=== PATIENT | female | born 2000 | race Caucasian/White ===

== ENCOUNTER 2018-04-30 16:13 | Emergency (ER) | payer OTHER ==
[2018-04-30] MEDS ORDERED: NORMAL SALINE 1000 ML 1,000 ML IV ONE (16:52)
[2018-04-30 17:15] LABS: ABSOLUTE EOSINOPHILS # (AUTO) 0.1 10^3/uL (0.0-0.6); ABSOLUTE LYMPHOCYTES (AUTO) 2.1 10^3/uL (0.5-4.7); ABSOLUTE MONOCYTES (AUTO) 0.4 10^3/uL (0.1-1.4); BASOPHILS % (AUTO) 0.4 % (0-2); EOSINOPHILS % (AUTO) 0.8 % (0-6); HEMATOCRIT 37.4 % (36.0-47.0); HEMOGLOBIN 12.7 g/dL (12.0-15.5); LYMPHOCYTES % (AUTO) 19.4 % (13-45); MEAN CORPUSCULAR HGB CONC 33.9 g/dL (32.0-36.0); MEAN CORPUSCULAR VOLUME 83 fl (80-97); MONOCYTES % (AUTO) 3.9 % (3-13); PLATELET COUNT 295 10^3/uL (150-450); RED BLOOD COUNT 4.53 10^6/uL (3.72-5.28); RED CELL DISTRIBUTION WIDTH 13.2 % (11.5-14.0); SEGMENTED NEUTROPHILS % (AUTO) 75.5 % (42-78); TOTAL CELLS COUNTED % (AUTO) 100 %; WHITE BLOOD COUNT 10.6 10^3/uL (4.0-10.5)
[2018-04-30 17:27] LABS: ALANINE AMINOTRANSFERASE 21 U/L (9-52); ALBUMIN 4.4 g/dL (3.5-5.0); ALKALINE PHOSPHATASE 80 U/L (38-126); ANION GAP 10 (5-19); ASPARTATE AMINO TRANSFERASE 17 U/L (14-36); BILIRUBIN,DIRECT 0.3 mg/dL (0.0-0.4); BILIRUBIN,TOTAL 0.3 mg/dL (0.2-1.3); BLOOD UREA NITROGEN 7 mg/dL (7-20); CALCIUM 9.3 mg/dL (8.4-10.2); CARBON DIOXIDE 24 mmol/L (22-30); CHLORIDE 109 mmol/L (98-107); GLUCOSE 93 mg/dL (75-110); POTASSIUM 4.1 mmol/L (3.6-5.0); SODIUM 143.1 mmol/L (137-145); TOTAL PROTEIN 6.7 g/dL (6.3-8.2)
[2018-04-30 18:06] LABS: APPEARANCE,URINE SLIGHTLY-CLOUDY; BILIRUBIN,URINE NEGATIVE (NEGATIVE); COLOR,URINE STRAW; GLUCOSE, URINE NEGATIVE (NEGATIVE); KETONES,URINE NEGATIVE (NEGATIVE); LEUKOCYTE ESTERASE,URINE MODERATE (NEGATIVE); NITRITE,URINE NEGATIVE (NEGATIVE); PROTEIN,URINE NEGATIVE (NEGATIVE); URINE SPECIFIC GRAVITY 1.003; UROBILINOGEN,URINE NEGATIVE mg/dL (<2.0)
[2018-04-30 18:22] LABS: URINE AMPHETAMINES SCREEN UNCONFIRMED POSITIVE; URINE BARBITURATES SCREEN NEGATIVE; URINE BENZODIAZEPINES SCREEN NEGATIVE; URINE COCAINE SCREEN NEGATIVE; URINE MARIJUANA (THC) SCREEN NEGATIVE; URINE METHADONE SCREEN NEGATIVE; URINE PHENCYCLIDINE SCREEN NEGATIVE
--- NOTE | 2018-04-30 20:48 | ER Document Report ---
ED General - General Chief Complaint: Syncope Stated Complaint: POSSIBLE SYNCOPE Time Seen by Provider: 04/30/18 16:51 TRAVEL OUTSIDE OF THE [place] IN LAST 30 DAYS: No - HPI Notes: Patient presents emergency department for evaluation of a near syncopal episode. She states she was at work and felt as if she was going to pass out. She was able to slowly lower herself to the ground. She denies hitting her head. She states she believes she was out for about 2 minutes. She did increase her Adderall dose to 25 mg today, she was on 10 mg prior. She denies any other drug use. She states she has been eating and drinking normally. States she is urinating normally. - Related Data Allergies/Adverse Reactions: zolpidem [From Ambien] Allergy (Verified 04/30/18 18:17) Past Medical History - General Information source: Patient - Social History Smoking Status: Never Smoker Family History: Other - Pulmonary embolus in grandfather, possibly Patient has suicidal ideation: No Patient has homicidal ideation: No Renal/ Medical History: Denies: Hx Peritoneal Dialysis Review of Systems - Review of Systems Constitutional: Weakness EENT: No symptoms reported Cardiovascular: No symptoms reported Respiratory: No symptoms reported Gastrointestinal: No symptoms reported Female Genitourinary: No symptoms reported Musculoskeletal: No symptoms reported Skin: No symptoms reported Neurological/Psychological: See HPI Physical Exam - Vital signs Vitals: Temp 98.3 F 04/30/18 16:24 - Notes Notes: Vital signs reviewed, please refer to chart. Patient is normocephalic, a traumatic. Pupils equal round, reactive to light. Neck is supple without meningismus. Heart is regular rate and rhythm. Lungs are clear to auscultation bilaterally. Abdomen is soft, nontender, normoactive bowel sounds throughout. Extremities without cyanosis, clubbing, edema. Calves are nontender. Peripheral pulses are equal. Skin is warm and dry. Patient is awake, alert, oriented x3. Cranial nerves II through XII are grossly intact without focal neurological deficits. Strength is plus 5 out of 5 bilateral upper and lower extremities. Sensation is intact, intact lqzzep-jzaf-nsslar, rapid alternating movements, heel to steele. Course - Re-evaluation Re-evalutation: 04/30/18 20:46 Patient presented to the emergency department for evaluation. She was given IV fluids. Prior to this orthostatic vital signs were found to be positive. She had a significant drop in her systolic blood pressure from sitting to standing. She was given IV fluids. She continued to feel some dizziness. Repeat orthostatic vital signs were performed and she was found not have a significant drop. She is not vomiting. She has no other fluid losses. Her lecture lites are unremarkable. At this point we will go ahead and discharge the patient home. She is to follow-up with primary care, return to the emergency department with worsening or new concerning symptoms of any sort. - Vital Signs Vital signs: Temp Pulse Resp BP Pulse Ox 98.3 F 65 19 127/85 H 100 04/30/18 16:24 04/30/18 20:18 04/30/18 20:15 04/30/18 20:18 04/30/18 20:15 - Laboratory Result Diagrams: 04/30/18 16:54 04/30/18 16:54 Laboratory results interpreted by me: 04/30/18 04/30/18 04/30/18 16:54 16:54 16:54 WBC 10.6 H Chloride 109 H Urine Blood SMALL H Ur Leukocyte Esterase MODERATE H - EKG Interpretation by Me Additional EKG results interpreted by me: 04/30/18 20:46 Sinus mechanism with a rate of 60 bpm. Normal axis and intervals, no acute ST changes concerning for ischemia or infarction. Discharge - Discharge Clinical Impression: Orthostatic hypotension, Dizziness, Near syncope Instructions: Orthostatic Hypotension ([facility]) Additional Instructions: Stay well-hydrated. Follow-up with your doctor next week. Return to the emergency department with worsening or new concerning symptoms.
[2018-04-30 21:06] VITALS: BP 125/90
--- NOTE | 2018-04-30 22:11 | EKG REPORT ---
SEVERITY:- NORMAL ECG - SINUS RHYTHM : Confirmed by: Hallie Yeboah 30-Apr-2018 22:10:17
== END 2018-04-30 21:05 | disposition home or self-care (01) ==
LOC: ER 16:13
DX: I95.1 Orthostatic hypotension (principal); R42 Dizziness and giddiness
CPT/HCPCS: 93005; 99284; 96360; 36415; 84703; 85025; 80053; 81001; 80307; 85379; 93010; J7030

== ENCOUNTER → 2018-07-13 | Outpatient (CLI) | payer OTHER | LOC: OD 09:46 | PROVIDERS: ATTEND Obstetrics & Gynecology | DX: N91.2 Amenorrhea, unspecified (principal) | CPT/HCPCS: 36415; 84702 ==

== ENCOUNTER → 2018-07-16 | Outpatient (CLI) | payer OTHER | LOC: OD 08:50 | PROVIDERS: ATTEND Obstetrics & Gynecology | DX: N91.2 Amenorrhea, unspecified (principal) | CPT/HCPCS: 36415; 84702 ==

== ENCOUNTER → 2018-10-13 | Outpatient (CLI) | payer OTHER | LOC: OD 08:55 | PROVIDERS: ATTEND Nurse Practitioner Primary Care | DX: R10.32 Left lower quadrant pain (principal) | CPT/HCPCS: 36415; 84702 ==

== ENCOUNTER → 2018-11-09 | Outpatient (CLI) | payer OTHER | LOC: OD 08:52 | PROVIDERS: ATTEND Nurse Practitioner Primary Care | DX: Z32.01 Encounter for pregnancy test, result positive (principal) | CPT/HCPCS: 36415; 84702 ==

== ENCOUNTER 2019-03-27 17:36 | Inpatient (IN) | payer MEDICAID ==
[2019-03-27] MEDS ORDERED: PROMETHAZINE HCL INJ 25 MG/1 ML VIAL ONE (18:03)
[2019-03-27 18:25] LABS: APPEARANCE,URINE CLEAR; BILIRUBIN,URINE NEGATIVE (NEGATIVE); COLOR,URINE YELLOW; GLUCOSE, URINE NEGATIVE (NEGATIVE); KETONES,URINE TRACE mg/dL (NEGATIVE); LEUKOCYTE ESTERASE,URINE TRACE (NEGATIVE); NITRITE,URINE NEGATIVE (NEGATIVE); PROTEIN,URINE NEGATIVE (NEGATIVE); URINE SPECIFIC GRAVITY 1.012; UROBILINOGEN,URINE NEGATIVE mg/dL (<2.0)
[2019-03-27 18:33] LABS: URINE AMPHETAMINES SCREEN NEGATIVE; URINE BARBITURATES SCREEN NEGATIVE; URINE BENZODIAZEPINES SCREEN NEGATIVE; URINE COCAINE SCREEN NEGATIVE; URINE MARIJUANA (THC) SCREEN NEGATIVE; URINE METHADONE SCREEN NEGATIVE; URINE PHENCYCLIDINE SCREEN NEGATIVE
[2019-03-27] MEDS ORDERED: HYDROXYZINE PAMOATE 50 MG CAPSULE ONE (18:49)
[2019-03-27 20:32] LABS: ABSOLUTE LYMPHOCYTES (AUTO) 1.1 10^3/uL (0.5-4.7); ABSOLUTE MONOCYTES (AUTO) 0.6 10^3/uL (0.1-1.4); ABSOLUTE NEUT (AUTO) 16.1 10^3/uL (1.7-8.2); BASOPHILS % (AUTO) 0.1 % (0-2); HEMATOCRIT 30.1 % (36.0-47.0); HEMOGLOBIN 10.3 g/dL (12.0-15.5); LYMPHOCYTES % (AUTO) 6.2 % (13-45); MEAN CORPUSCULAR HEMOGLOBIN 28.6 pg (27.0-33.4); MEAN CORPUSCULAR HGB CONC 34.1 g/dL (32.0-36.0); MEAN CORPUSCULAR VOLUME 84 fl (80-97); MONOCYTES % (AUTO) 3.5 % (3-13); PLATELET COUNT 282 10^3/uL (150-450); RED BLOOD COUNT 3.59 10^6/uL (3.72-5.28); RED CELL DISTRIBUTION WIDTH 13.4 % (11.5-14.0); SEGMENTED NEUTROPHILS % (AUTO) 90.2 % (42-78); TOTAL CELLS COUNTED % (AUTO) 100 %; WHITE BLOOD COUNT 17.8 10^3/uL (4.0-10.5)
[2019-03-27] MEDS ORDERED: MORPHINE SULFATE 10 MG/ML INJ ONE (20:32)
[2019-03-27] MEDS ORDERED: MORPHINE SULFATE 10 MG/ML INJ IV PRN (20:38)
[2019-03-27 20:48] LABS: ALBUMIN 3.1 g/dL (3.5-5.0); ALKALINE PHOSPHATASE 102 U/L (38-126); ANION GAP 7 (5-19); ASPARTATE AMINO TRANSFERASE 46 U/L (14-36); BILIRUBIN,DIRECT 0.1 mg/dL (0.0-0.4); BILIRUBIN,TOTAL 0.5 mg/dL (0.2-1.3); BLOOD UREA NITROGEN 4 mg/dL (7-20); CALCIUM 8.8 mg/dL (8.4-10.2); CARBON DIOXIDE 24 mmol/L (22-30); CHLORIDE 105 mmol/L (98-107); GLUCOSE 94 mg/dL (75-110); POTASSIUM 3.4 mmol/L (3.6-5.0); TOTAL PROTEIN 5.6 g/dL (6.3-8.2)
[2019-03-27 20:51] LABS: AMYLASE < 30 U/L (30-110)
[2019-03-27] MEDS ORDERED: AMPICILLIN SOD INJ 1 GM VIAL ONE (21:01)
[2019-03-27] MEDS: RINGERS SOLUTION,LACTATED 1,000 ML IV PRN (21:08)
--- NOTE | 2019-03-27 21:09 | RADIOLOGY REPORT (SQ) ---
EXAM DESCRIPTION: US LIMITED CLINICAL HISTORY: 19 years Female , abdominal pain, LMP 10/16/2018 COMPARISON: None TECHNIQUE: Transabdominal limited OB ultrasound was performed for a total of 26 images. FINDINGS: There is an intrauterine in a vertex presentation. The cervix is closed and measures 3.2 cm in length. A heart rate is measured at 155 bpm. The amniotic fluid index measures 11.7 cm. The placenta is anterior, no previa or abruption. The clinical age is 23 weeks 1 day. IMPRESSION: Single viable intrauterine in a vertex presentation with an anterior placenta, adequate amniotic fluid volume, and clinical age of 23 weeks 1 day giving an EDC on 07/23/2019.
--- NOTE | 2019-03-27 21:17 | RADIOLOGY REPORT (SQ) ---
US ABDOMEN LIMITED HISTORY: RUQ abdominal pain, 23 week COMPARISON: none TECHNIQUE: Real-time sonographic images of the right upper quadrant of the abdomen were obtained including color flow analysis. FINDINGS: Transabdominal sonographic images through the right upper quadrant were performed with grayscale, color and Doppler evaluation. The liver is normal in appearance and measures 17.1 cm in length. Imaged hepatic and portal veins are patent with normal directional flow. No intrahepatic or extrahepatic biliary ductal dilatation. 3.1-mm common hepatic duct. The gallbladder is adequately distended. No gallstone, gallbladder wall thickening or pericholecystic fluid. Negative sonographic Sofia's sign. Unremarkable pancreas. The pancreatic tail is obscured by overlying bowel gas. The right kidney measures 12.0 cm in length with dilatation of the renal pelvis up to 3.0 cm and moderate caliectasis and moderate dilatation of the visualized proximal portion of the right ureter. No shadowing renal calculi are noted. No free fluid in Morison's pouch. IMPRESSION: No cholelithiasis, evidence of acute cholecystitis, or evidence of biliary obstruction. Moderate right hydronephrosis may be due to extrinsic compression of the distal right ureter or a right ureteral calculus.
--- NOTE | 2019-03-27 21:22 | Admission Physical ---
Datetime Report Generated by CPN: 03/27/2019 21:22 CURRENT ADMISSION Chief Complaint: Other Chief Complaint Other: midepigastric pain causing nausea. Onset around 1400. Pain is stabbing in nature Indication for Induction: Not Applicable Admit Impression : , Intrauterine ; Observation/Evaluation Admit Plan: Admit to Unit; Observation/Evaluation ALLERGIES Medication Allergies: Yes Medication Allergies: zolpidem (04/30/2018) Latex: No Latex Allergies OBSTETRICAL HISTORY EDC: 07/23/2019 00:00 : 3 Para: 1 Term: 1 : 0 SAB: 1 IAB: 0 Gestational Diabetes: No Rh Sensitization: No Incompetent Cervix: No ADILENE: No Infertility: No ART Treatment: No Uterine Anomaly: No IUGR: No Hx Previous C/S: No Macrosomia: No Hx Loss/Stillborn: No PIH: No Hx : No Placenta Previa/Abruption: No Depression/PP Depression: No PTL/PROM: No Post Hemorrhage: No Current Procedures: Ultrasound Obstetrical History Comments: G1: 2014, , 37 weeks G2: current SEE RECORDS Alcohol: No Marijuana : No Cocaine: No Other Illicit Drugs: No Cigarettes: Never Smoker. [id number] MEDICAL HISTORY Diabetes: No Blood Transfusion: No Pulmonary Disease (Asthma, TB): No Breast Disease: No Hypertension: No Trommel Tender Surgery: No Heart Disease: No Hosp/Surgery: No Autoimmune Disorder: No Anesthetic Complications: No Kidney Disease: Yes Abnormal Pap Smear: No Neuro/Epilepsy: No Psychiatric Disorders: No Other Medical Diseases: No Hepatitis/Liver Disease: No Significant Family History: No Varicosities/Phlebitis: No Trauma/Violence : No Thyroid Dysfunction: No Medical History Comments: frequent UTIs INFECTIOUS HISTORY Gonorrhea: No Genital Herpes: No Chlamydia: No Tuberculosis: No Syphilis: No Hepatitis: No HIV/AIDS Exposure: No Rash or Viral Illness: No HPV: No PHYSICAL EXAM General: Abnormal HEENT: Normal Neurologic: Normal Thyroid: Normal Heart: Normal Lungs: Normal Breast: Normal Back: Normal Abdomen: Normal Genitourinary Exam: Normal Extremities: Normal DTRs: Normal Pelvic Type: Adequate Physical Exam Comments: appears very uncomfortable. c/o chills and shaking. Vital Signs: Reviewed FETUS A EGA: 23.1 Admit Comment: WBC 17.8. In light of patient discomfort and evidence of possible infection, will admit for IV fluids and pain control. Ampicillin initiated until able to determine possible alternative etiology. CMP, ZULEIKA and Lipase pending. sono of gallbladder and cervical length done. reports pending. PLANS FOR LABOR AND DELIVERY Feeding Preference: Breast Circumcision: N/A INFORMED CONSENT Signature: Electronically signed by Rosy De La Cruz MD ([facility]) on 03/27/2019 at 21:21 with User ID: [email or web address]
[2019-03-28] MEDS ORDERED: AMPICILLIN SOD INJ 1 GM VIAL IV SCH
[2019-03-28] MEDS: ACETAMINOPHEN 325 MG TABLET PO PRN ×4 (00:49→20:41)
[2019-03-28] MEDS: AMPICILLIN SOD INJ 1 GM VIAL IV SCH ×2 (04:04→09:18)
[2019-03-28] MEDS ORDERED: PROMETHAZINE HCL INJ 25 MG/1 ML VIAL IV ONE ×2 (07:00→23:59)
[2019-03-28 07:16] LABS: ABSOLUTE EOSINOPHILS # (AUTO) 0.1 10^3/uL (0.0-0.6); ABSOLUTE LYMPHOCYTES (AUTO) 1.6 10^3/uL (0.5-4.7); ABSOLUTE MONOCYTES (AUTO) 0.4 10^3/uL (0.1-1.4); ABSOLUTE NEUT (AUTO) 8.6 10^3/uL (1.7-8.2); BASOPHILS % (AUTO) 0.2 % (0-2); EOSINOPHILS % (AUTO) 0.5 % (0-6); HEMATOCRIT 29.8 % (36.0-47.0); HEMOGLOBIN 10.4 g/dL (12.0-15.5); LYMPHOCYTES % (AUTO) 14.8 % (13-45); MEAN CORPUSCULAR HEMOGLOBIN 29.2 pg (27.0-33.4); MEAN CORPUSCULAR HGB CONC 34.9 g/dL (32.0-36.0); MEAN CORPUSCULAR VOLUME 84 fl (80-97); PLATELET COUNT 276 10^3/uL (150-450); RED BLOOD COUNT 3.56 10^6/uL (3.72-5.28); RED CELL DISTRIBUTION WIDTH 13.2 % (11.5-14.0); SEGMENTED NEUTROPHILS % (AUTO) 80.5 % (42-78); TOTAL CELLS COUNTED % (AUTO) 100 %; WHITE BLOOD COUNT 10.7 10^3/uL (4.0-10.5)
[2019-03-28] MEDS: RINGERS SOLUTION,LACTATED 1,000 ML IV PRN ×2 (07:40→16:27)
[2019-03-28 14:44] LABS: ALBUMIN 2.8 g/dL (3.5-5.0); ALKALINE PHOSPHATASE 114 U/L (38-126); AMYLASE 34 U/L (30-110); ANION GAP 8 (5-19); ASPARTATE AMINO TRANSFERASE 61 U/L (14-36); BILIRUBIN,DIRECT 0.9 mg/dL (0.0-0.4); BILIRUBIN,TOTAL 1.3 mg/dL (0.2-1.3); BLOOD UREA NITROGEN 3 mg/dL (7-20); CARBON DIOXIDE 22 mmol/L (22-30); CHLORIDE 108 mmol/L (98-107); GLUCOSE 74 mg/dL (75-110); POTASSIUM 3.7 mmol/L (3.6-5.0); TOTAL PROTEIN 5.7 g/dL (6.3-8.2)
[2019-03-28] MEDS: ONDANSETRON HCL INJ/PF 4 MG/2 ML SDV IV PRN ×2 (15:25→22:22)
[2019-03-28] MEDS: AMPICILLIN SODIUM 1 GM in NORMAL SALINE 50 ML IV SCH ×2 (15:26→21:34)
--- NOTE | 2019-03-28 16:00 | PDOC PROGRESS REPORT ---
Subjective Progress Note for:: 03/28/19 Subjective:: pt reports that she was feeling better this am and would like to eat. She ate now reports pain same as last night. epigastric in origin but changed from sharp to achy, now her nausea is worse too. Reason For Visit: , epigastric pain Physical Exam - Physical Exam Vital Signs: Temp Pulse Resp BP Pulse Ox 98.3 F 66 18 96/49 L 99 03/28/19 15:19 03/28/19 15:19 03/28/19 15:19 03/28/19 15:19 03/28/19 15:19 Intake & Output 03/27/19 03/28/19 03/29/19 06:59 06:59 06:59 Intake Total 1000 Balance 1000 Weight 77.7 kg General appearance: PRESENT: no acute distress, well-developed, well-nourished Head exam: PRESENT: atraumatic, normocephalic Neck exam: PRESENT: full ROM. ABSENT: carotid bruit, JVD, lymphadenopathy, thyromegaly Respiratory exam: PRESENT: clear to auscultation jose eduardo, symmetrical, unlabored Cardiovascular exam: PRESENT: RRR. ABSENT: diastolic murmur, rubs, systolic murmur Vascular exam: PRESENT: normal capillary refill GI/Abdominal exam: PRESENT: soft, tenderness. ABSENT: distended, guarding, mass, Sofia's sign, rebound Rectal exam: PRESENT: deferred Extremities exam: PRESENT: full ROM. ABSENT: calf tenderness, clubbing, pedal edema Neurological exam: PRESENT: alert, awake, oriented to person, oriented to place, oriented to time, oriented to situation, CN II-XII grossly intact. ABSENT: motor sensory deficit Psychiatric exam: PRESENT: appropriate affect, normal mood. ABSENT: homicidal ideation, suicidal ideation Result Laboratory Results: 03/28/19 07:09 03/28/19 07:09 03/27/19 03/27/19 03/27/19 18:00 20:15 20:15 WBC 17.8 H RBC 3.59 L Hgb 10.3 L Hct 30.1 L MCV 84 MCH 28.6 MCHC 34.1 RDW 13.4 Plt Count 282 Seg Neutrophils % 90.2 H Sodium 135.9 L Potassium 3.4 L Chloride 105 Carbon Dioxide 24 Anion Gap 7 BUN 4 L Creatinine 0.51 L Est GFR ( Amer) > 60 Glucose 94 Calcium 8.8 Total Bilirubin 0.5 AST 46 H Alkaline Phosphatase 102 Total Protein 5.6 L Albumin 3.1 L Amylase < 30 L Lipase 35.9 Urine Color YELLOW Urine Appearance CLEAR Urine pH 6.0 Ur Specific [place] 1.012 Urine Protein NEGATIVE Urine Glucose (UA) NEGATIVE Urine Ketones TRACE H Urine Blood SMALL H Urine Nitrite NEGATIVE Ur Leukocyte Esterase TRACE H Urine WBC (Auto) 9 Urine RBC (Auto) 1 03/28/19 03/28/19 07:09 07:09 WBC 10.7 H RBC 3.56 L Hgb 10.4 L Hct 29.8 L MCV 84 MCH 29.2 MCHC 34.9 RDW 13.2 Plt Count 276 Seg Neutrophils % 80.5 H Sodium 137.7 Potassium 3.7 Chloride 108 H Carbon Dioxide 22 Anion Gap 8 BUN 3 L Creatinine 0.52 Est GFR ( Amer) > 60 Glucose 74 L Calcium 9.0 Total Bilirubin 1.3 AST 61 H Alkaline Phosphatase 114 Total Protein 5.7 L Albumin 2.8 L Amylase 34 Lipase 24.4 Urine Color Urine Appearance Urine pH Ur Specific Post Urine Protein Urine Glucose (UA) Urine Ketones Urine Blood Urine Nitrite Ur Leukocyte Esterase Urine WBC (Auto) Urine RBC (Auto) Impressions: Abdomen Ultrasound 03/27/19 00:00 IMPRESSION: No cholelithiasis, evidence of acute cholecystitis, or evidence of biliary obstruction. Moderate right hydronephrosis may be due to extrinsic compression of the distal right ureter or a right ureteral calculus. Obstetrics Ultrasound 03/27/19 00:00 IMPRESSION: Single viable intrauterine in a vertex presentation with an anterior placenta, adequate amniotic fluid volume, and clinical age of 23 weeks 1 day giving an EDC on 07/23/2019. Status: Imported from PACS Assessment & Plan - Diagnosis (1) Epigastric abdominal pain affecting Is this a current diagnosis for this admission?: Yes Plan: WBC has come down. Still no fevers. Still significant epigastric pain. WIll repeat labs today and repeat labs in am. concern for subclinical cholecystitis. Since patient feeling more nauseated - will stop po food at this time. Reviewed with patient normal US. Continue antibiotics for now (2) Second trimester Is this a current diagnosis for this admission?: Yes Plan: doptones q shift. No ctx, no vb, no lof - Time Time Spent with patient: 15-24 minutes Medications reviewed and adjusted accordingly: Yes Anticipated discharge: Home Within: within 24 hours - Inpatient Certification Based on my medical assessment, after consideration of the patient's comorbidities, presenting symptoms, or acuity I expect that the services needed warrant INPATIENT care.: Yes I certify that my determination is in accordance with my understanding of Medicare's requirements for reasonable and necessary INPATIENT services [42 CFR 412.3e].: Yes Medical Necessity: Need For IV Fluids, Need for Pain Control, Need for IV Antibiotics
[2019-03-28] MEDS ORDERED: GLUCAGON,HUMAN RECOMB 1 MG INJ SUBCUT PRN (16:01)
[2019-03-28] MEDS ORDERED: DEXTROSE 50%-WATER 25 GM/50 ML DISP.SYRIN IV PRN ×2 (16:01)
[2019-03-28] MEDS ORDERED: DEXTROSE 40% GEL 15 GM TUBE PO PRN ×2 (16:01)
[2019-03-29] MEDS: RINGERS SOLUTION,LACTATED 1,000 ML IV PRN (00:32)
[2019-03-29] MEDS: AMPICILLIN SODIUM 1 GM in NORMAL SALINE 50 ML IV SCH ×2 (03:41→08:46)
[2019-03-29 07:25] LABS: HEMATOCRIT 28.7 % (36.0-47.0); HEMOGLOBIN 9.9 g/dL (12.0-15.5); MEAN CORPUSCULAR HEMOGLOBIN 29.2 pg (27.0-33.4); MEAN CORPUSCULAR HGB CONC 34.6 g/dL (32.0-36.0); MEAN CORPUSCULAR VOLUME 84 fl (80-97); PLATELET COUNT 231 10^3/uL (150-450); RED CELL DISTRIBUTION WIDTH 13.5 % (11.5-14.0); WHITE BLOOD COUNT 8.3 10^3/uL (4.0-10.5)
[2019-03-29 07:39] LABS: ALBUMIN 2.6 g/dL (3.5-5.0); ALKALINE PHOSPHATASE 105 U/L (38-126); ANION GAP 7 (5-19); ASPARTATE AMINO TRANSFERASE 33 U/L (14-36); BILIRUBIN,TOTAL 0.3 mg/dL (0.2-1.3); BLOOD UREA NITROGEN 5 mg/dL (7-20); CALCIUM 8.5 mg/dL (8.4-10.2); CARBON DIOXIDE 23 mmol/L (22-30); CHLORIDE 107 mmol/L (98-107); GLUCOSE 74 mg/dL (75-110); POTASSIUM 3.5 mmol/L (3.6-5.0)
[2019-03-29] MEDS ORDERED: FAMOTIDINE INJ/PF 20 MG/2 ML SDV IV ONE (08:20)
[2019-03-29] MEDS ORDERED: NORMAL SALINE 1000 ML 1,000 ML with THIAMINE HCL 100 MG, MVI, ADULT NO.1 WITH VIT K 10 ... IV ONE ×8 (09:00→10:00)
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
--- NOTE | 2019-03-29 13:07 | PDOC DISCHARGE SUMMARY ---
Impression - Admit/DC Date/PCP Admission Date/Primary Care Provider: 03/27/19 20:40 TEQUILA XIE NP Discharge Date: 03/29/19 - Assessment Summary: The patient was admitted overnight and was made NPO. General surgery saw her today as well. She is now eating and her epigastric pain has resolved and she is ready to go home. - Additional Information Resuscitation Status: Full Code Discharge Diet: As Tolerated Discharge Activity: Activity As Tolerated Referrals: TEQUILA XIE NP [Primary Care Provider] - Home Medications: No Home Medications 03/27/19 History of Present Illiness History of Present Illness: MAYRA BURNS is a 19 year old female Physical Exam - Physical Exam Vital Signs: Temp Pulse Resp BP Pulse Ox 97.7 F 65 16 92/40 L 99 03/29/19 11:25 03/29/19 11:25 03/29/19 11:25 03/29/19 11:25 03/29/19 11:25 Intake & Output 03/28/19 03/29/19 03/30/19 06:59 06:59 06:59 Intake Total 1000 2150 Balance 1000 2150 Weight 77.7 kg 78.3 kg Results Laboratory Results: WBC 8.3 10^3/uL (4.0-10.5) 03/29/19 06:35 RBC 3.40 10^6/uL (3.72-5.28) L 03/29/19 06:35 Hgb 9.9 g/dL (12.0-15.5) L 03/29/19 06:35 Hct 28.7 % (36.0-47.0) L 03/29/19 06:35 MCV 84 fl (80-97) 03/29/19 06:35 MCH 29.2 pg (27.0-33.4) 03/29/19 06:35 MCHC 34.6 g/dL (32.0-36.0) 03/29/19 06:35 RDW 13.5 % (11.5-14.0) 03/29/19 06:35 Plt Count 231 10^3/uL (150-450) 03/29/19 06:35 Lymph % (Auto) 14.8 % (13-45) 03/28/19 07:09 [place] % (Auto) 4.0 % (3-13) 03/28/19 07:09 Eos % (Auto) 0.5 % (0-6) 03/28/19 07:09 Baso % (Auto) 0.2 % (0-2) 03/28/19 07:09 Absolute Neuts (auto) 8.6 10^3/uL (1.7-8.2) H 03/28/19 07:09 Absolute Lymphs (auto) 1.6 10^3/uL (0.5-4.7) 03/28/19 07:09 Absolute Monos (auto) 0.4 10^3/uL (0.1-1.4) 03/28/19 07:09 Absolute Eos (auto) 0.1 10^3/uL (0.0-0.6) 03/28/19 07:09 Absolute Basos (auto) 0.0 10^3/uL (0.0-0.2) 03/28/19 07:09 Seg Neutrophils % 80.5 % (42-78) H 03/28/19 07:09 Sodium 137.2 mmol/L (137-145) 03/29/19 06:35 Potassium 3.5 mmol/L (3.6-5.0) L 03/29/19 06:35 Chloride 107 mmol/L (98-107) 03/29/19 06:35 Carbon Dioxide 23 mmol/L (22-30) 03/29/19 06:35 Anion Gap 7 (5-19) 03/29/19 06:35 BUN 5 mg/dL (7-20) L 03/29/19 06:35 Creatinine 0.56 mg/dL (0.52-1.25) 03/29/19 06:35 Est GFR ( Amer) > 60 (>60) 03/29/19 06:35 Est GFR (MDRD) Non-Af > 60 (>60) 03/29/19 06:35 Glucose 74 mg/dL (75-110) L 03/29/19 06:35 Calcium 8.5 mg/dL (8.4-10.2) 03/29/19 06:35 Total Bilirubin 0.3 mg/dL (0.2-1.3) 03/29/19 06:35 Direct Bilirubin 0.0 mg/dL (0.0-0.4) 03/29/19 06:35 Neonat Total Bilirubin Not Reportable 03/29/19 06:35 Neonat Direct Bilirubin Not Reportable 03/29/19 06:35 Neonat Indirect Bili Not Reportable 03/29/19 06:35 AST 33 U/L (14-36) 03/29/19 06:35 ALT 23 U/L (<35) 03/29/19 06:35 Alkaline Phosphatase 105 U/L (38-126) 03/29/19 06:35 Total Protein 5.0 g/dL (6.3-8.2) L 03/29/19 06:35 Albumin 2.6 g/dL (3.5-5.0) L 03/29/19 06:35 Amylase 34 U/L (30-110) 03/28/19 07:09 Lipase 24.4 U/L (23-300) 03/28/19 07:09 Urine Color YELLOW 03/27/19 18:00 Urine Appearance CLEAR 03/27/19 18:00 Urine pH 6.0 (5.0-9.0) 03/27/19 18:00 Ur Specific [place] 1.012 03/27/19 18:00 Urine Protein NEGATIVE mg/dL (NEGATIVE) 03/27/19 18:00 Urine Glucose (UA) NEGATIVE mg/dL (NEGATIVE) 03/27/19 18:00 Urine Ketones TRACE mg/dL (NEGATIVE) H 03/27/19 18:00 Urine Blood SMALL (NEGATIVE) H 03/27/19 18:00 Urine Nitrite NEGATIVE (NEGATIVE) 03/27/19 18:00 Urine Bilirubin NEGATIVE (NEGATIVE) 03/27/19 18:00 Urine Urobilinogen NEGATIVE mg/dL (<2.0) 03/27/19 18:00 Ur Leukocyte Esterase TRACE (NEGATIVE) H 03/27/19 18:00 Urine WBC (Auto) 9 /HPF 03/27/19 18:00 Urine RBC (Auto) 1 /HPF 03/27/19 18:00 Squamous Epi Cells Auto 2 /HPF 03/27/19 18:00 Urine Mucus (Auto) RARE /LPF 03/27/19 18:00 Urine Ascorbic Acid NEGATIVE (NEGATIVE) 03/27/19 18:00 Urine Opiates Screen NEGATIVE 03/27/19 18:00 Urine Methadone Screen NEGATIVE 03/27/19 18:00 Ur Barbiturates Screen NEGATIVE 03/27/19 18:00 Ur Phencyclidine Scrn NEGATIVE 03/27/19 18:00 Ur Amphetamines Screen NEGATIVE 03/27/19 18:00 U Benzodiazepines Scrn NEGATIVE 03/27/19 18:00 Urine Cocaine Screen NEGATIVE 03/27/19 18:00 U Marijuana (THC) Screen NEGATIVE 03/27/19 18:00 Impressions: Abdomen Ultrasound 03/27/19 00:00 IMPRESSION: No cholelithiasis, evidence of acute cholecystitis, or evidence of biliary obstruction. Moderate right hydronephrosis may be due to extrinsic compression of the distal right ureter or a right ureteral calculus. Obstetrics Ultrasound 03/27/19 00:00 IMPRESSION: Single viable intrauterine in a vertex presentation with an anterior placenta, adequate amniotic fluid volume, and clinical age of 23 weeks 1 day giving an EDC on 07/23/2019. Stroke Is this a Stroke Patient?: No Acute Heart Failure - Is this a Heart Failure Patient?: No
[2019-03-29 14:26] VITALS: BP 90/44
== END 2019-03-29 15:05 | disposition home or self-care (01) | DRG 833 ==
LOC: LC 17:36 → OBSVTOIN 20:40 → LR 20:40 → 2S 21:55
PROVIDERS: ADMIT Obstetrics & Gynecology; ATTEND Obstetrics & Gynecology
DX: O26.893 Other specified pregnancy related conditions, third trimester (principal); R10.13 Epigastric pain; K59.09 Other constipation; Z3A.37 37 weeks gestation of pregnancy
CPT/HCPCS: 36415; 76705; 76815; 80053; 80307; 81001; 82150; 83690; 85025; 85027; 94760; J0290; J2270; J2405; J2550; J3411; J3490; J7030; J7120; S0028

== ENCOUNTER 2019-04-29 08:31 | Emergency (ER) | payer MEDICAID ==
[2019-04-29 08:38] VITALS: BP 111/57
[2019-04-29 09:18] LABS: APPEARANCE,URINE CLOUDY; BILIRUBIN,URINE NEGATIVE (NEGATIVE); COLOR,URINE YELLOW; GLUCOSE, URINE NEGATIVE (NEGATIVE); KETONES,URINE NEGATIVE (NEGATIVE); LEUKOCYTE ESTERASE,URINE NEGATIVE (NEGATIVE); NITRITE,URINE NEGATIVE (NEGATIVE); PROTEIN,URINE NEGATIVE (NEGATIVE)
[2019-04-29] MEDS ORDERED: NORMAL SALINE 1000 ML 1,000 ML IV ONE (11:27)
[2019-04-29] MEDS ORDERED: ACETAMINOPHEN 325 MG TABLET PO ONE (11:28)
[2019-04-29 12:23] LABS: ABSOLUTE LYMPHOCYTES (AUTO) 1.2 10^3/uL (0.5-4.7); ABSOLUTE MONOCYTES (AUTO) 0.3 10^3/uL (0.1-1.4); ABSOLUTE NEUT (AUTO) 13.3 10^3/uL (1.7-8.2); BASOPHILS % (AUTO) 0.1 % (0-2); HEMATOCRIT 34.3 % (36.0-47.0); HEMOGLOBIN 11.6 g/dL (12.0-15.5); LYMPHOCYTES % (AUTO) 8.1 % (13-45); MEAN CORPUSCULAR HEMOGLOBIN 28.4 pg (27.0-33.4); MEAN CORPUSCULAR HGB CONC 33.7 g/dL (32.0-36.0); MEAN CORPUSCULAR VOLUME 84 fl (80-97); MONOCYTES % (AUTO) 2.2 % (3-13); PLATELET COUNT 404 10^3/uL (150-450); RED BLOOD COUNT 4.07 10^6/uL (3.72-5.28); RED CELL DISTRIBUTION WIDTH 13.3 % (11.5-14.0); SEGMENTED NEUTROPHILS % (AUTO) 89.6 % (42-78); TOTAL CELLS COUNTED % (AUTO) 100 %; WHITE BLOOD COUNT 14.9 10^3/uL (4.0-10.5)
[2019-04-29 12:46] LABS: ALBUMIN 3.5 g/dL (3.5-5.0); ALKALINE PHOSPHATASE 191 U/L (38-126); ANION GAP 9 (5-19); ASPARTATE AMINO TRANSFERASE 96 U/L (14-36); BILIRUBIN,DIRECT 0.8 mg/dL (0.0-0.4); BLOOD UREA NITROGEN 3 mg/dL (7-20); CALCIUM 9.8 mg/dL (8.4-10.2); CARBON DIOXIDE 25 mmol/L (22-30); CHLORIDE 107 mmol/L (98-107); GLUCOSE 80 mg/dL (75-110); POTASSIUM 4.2 mmol/L (3.6-5.0); TOTAL PROTEIN 6.8 g/dL (6.3-8.2)
--- NOTE | 2019-04-29 13:03 | RADIOLOGY REPORT (SQ) ---
EXAM DESCRIPTION: U/S RETROPERITON (RENAL/AORTA) COMPLETED DATE/TIME: 04/29/2019 12:35 pm REASON FOR STUDY: right flank pain ? hydro/ stone COMPARISON: None. TECHNIQUE: Dynamic and static grayscale images acquired of the kidneys and bladder and recorded on P ACS. Additional selected color Doppler and spectral images recorded. LIMITATIONS: None. FINDINGS: RIGHT KIDNEY: The right kidney measures 11 cm in length. The corticomedullary differentia tion is preserved. There is scju-es-ziypgytn hydronephrosis. There is no calcification or mass. LEFT KIDNEY: The left kidney measures 10.4 cm in length. The corticomedullary differentiation is pr eserved. There is no hydronephrosis, calcification or mass. BLADDER: No masses. OTHER FINDINGS: Gravid uterus. The heart rate measures 140 beats per minute. IMPRESSION: 1. [id number] right-sided hydronephrosis. 2. Gravid uterus. TECHNICAL DOCUMENTATION: JOB ID: [id number] 2011 [employer]- All Rights Reserved Reading location - IP/workstation name: [email or web address]
--- NOTE | 2019-04-29 15:05 | ER Document Report ---
Entered by BEBO THOMPSON SCRIBE 04/29/19 1124 Acting as scribe for:EDNA WALDROP DO ED GI/ - General Chief Complaint: Back Pain Stated Complaint: BACK/ RIB PAIN/ Time Seen by Provider: 04/29/19 10:36 Primary Care Provider: TEQUILA XIE NP [Primary Care Provider] - Follow up as needed Mode of Arrival: Ambulatory Information source: Patient Notes: This 19 year old female patient presents to the emergency department today with complaints of nausea, vomiting, and diarrhea as well as associated right flank pain. Patient is 28 weeks , . Patient denies any vaginal bleeding. TRAVEL OUTSIDE OF THE [place] IN LAST 30 DAYS: No - Related Data Allergies/Adverse Reactions: zolpidem [From Ambien] Allergy (Verified 04/29/19 08:53) Past Medical History - General Information source: Patient - Social History Smoking Status: Never Smoker Cigarette use (# per day): No Chew tobacco use (# tins/day): No Frequency of alcohol use: None Drug Abuse: None Lives with: Family Family History: None, Other - Pulmonary embolus in grandfather, possibly Patient has suicidal ideation: No Patient has homicidal ideation: No - Medical History Medical History: Negative Surgical Hx: Negative Review of Systems - Review of Systems Constitutional: No symptoms reported EENT: No symptoms reported Cardiovascular: No symptoms reported Respiratory: No symptoms reported Gastrointestinal: See HPI, Diarrhea, Nausea, Vomiting Genitourinary: No symptoms reported Female Genitourinary: See HPI, . denies: Vaginal bleeding Musculoskeletal: No symptoms reported Skin: No symptoms reported Hematologic/Lymphatic: No symptoms reported Neurological/Psychological: No symptoms reported -: Yes All other systems reviewed and negative Physical Exam - Vital signs Vitals: Temp Pulse Resp BP Pulse Ox 98.4 F 71 20 111/57 L 99 04/29/19 08:36 04/29/19 08:36 04/29/19 08:36 04/29/19 08:36 04/29/19 08:36 - Notes Notes: Physical Exam: General: Alert, appears well. HEENT: Normocephalic. Atraumatic. PERRL. Extraocular movements intact. Oropharynx clear. Neck: Supple. Non-tender. Respiratory: No respiratory distress. Clear and equal breath sounds bilaterally. Cardiovascular: Regular rate and rhythm. Abdominal: Gravid uterus. No distension. Normal Bowel Sounds. Back: No gross abnormalities. Extremities: Moves all four extremities. Upper extremities: Normal inspection. Normal ROM. Lower extremities: Normal inspection. No edema. Normal ROM. Neurological: Normal cognition. AAOx4. Normal speech. Psychological: Normal affect. Normal Mood. Skin: Warm. Dry. Normal color. Course - Re-evaluation Re-evalutation: 04/29/19 13:38 MDM 19 year old female in third trimester of is here with right flank pain earlier with nausea and vomiting. UTI last week. Feels better now. No further nausea. Sono wiht hydro ? passed stone or small stone. No fever and nontoxic and improved here. Discussed follow up with Ob - she has appointment tomorrow - and she expressed understanding. - Vital Signs Vital signs: Temp Pulse Resp BP Pulse Ox 98.4 F 71 20 111/57 L 99 04/29/19 08:36 04/29/19 08:36 04/29/19 08:36 04/29/19 08:36 04/29/19 08:36 - Laboratory Result Diagrams: 04/29/19 12:10 04/29/19 12:10 Laboratory results interpreted by me: 04/29/19 04/29/19 04/29/19 09:00 12:10 12:10 WBC 14.9 H Hgb 11.6 L Hct 34.3 L Lymph % (Auto) 8.1 L [place] % (Auto) 2.2 L Absolute Neuts (auto) 13.3 H Seg Neutrophils % 89.6 H BUN 3 L Creatinine 0.43 L Direct Bilirubin 0.8 H AST 96 H ALT 43 H Alkaline Phosphatase 191 H Urine Urobilinogen 2.0 H Discharge - Discharge Clinical Impression: Right flank pain Hydronephrosis Qualifiers: Hydronephrosis type: unspecified Qualified Code(s): N13.30 - Unspecified hydronephrosis Condition: Good Disposition: HOME, SELF-CARE Instructions: Antinausea Medication ([facility]), Kidney Stone ([facility]), ([facility]) Additional Instructions: See your Ob doctor in follow up. Take your medicine as directed. Please return here for any problems or any concerns. Prescriptions: Promethazine HCl [Phenergan 25 mg Tablet] 12.5 mg PO TID #12 tablet Referrals: ROJAS,TEQUILA, [employer] [Primary Care Provider] - Follow up as needed I personally performed the services described in the documentation, reviewed and edited the documentation which was dictated to the scribe in my presence, and it accurately records my words and actions.
== END 2019-04-29 14:11 | disposition home or self-care (01) ==
LOC: ER 08:31
DX: O26.893 Other specified pregnancy related conditions, third trimester (principal); N13.30 Unspecified hydronephrosis; R10.9 Unspecified abdominal pain; R19.7 Diarrhea, unspecified; O21.2 Late vomiting of pregnancy; Z3A.28 28 weeks gestation of pregnancy; Z87.440 Personal history of urinary (tract) infections; Z88.8 Allergy status to other drugs, medicaments and biological substances
CPT/HCPCS: 99284; 96360; 36415; 85025; 80053; 81001; 76770; J3490; J7030

== ENCOUNTER 2019-05-09 05:25 | Outpatient (CLI) | payer MEDICAID ==
[2019-05-09] MEDS ORDERED: RINGERS SOLUTION,LACTATED 1,000 ML IV PRN (05:52)
[2019-05-09] MEDS ORDERED: PROMETHAZINE HCL INJ 25 MG/1 ML VIAL IV ONE (05:53)
[2019-05-09] MEDS ORDERED: PROMETHAZINE HCL INJ 25 MG/1 ML VIAL ONE (05:56)
[2019-05-09 06:02] LABS: APPEARANCE,URINE CLEAR; BILIRUBIN,URINE NEGATIVE (NEGATIVE); COLOR,URINE STRAW; GLUCOSE, URINE NEGATIVE (NEGATIVE); KETONES,URINE NEGATIVE (NEGATIVE); LEUKOCYTE ESTERASE,URINE TRACE (NEGATIVE); NITRITE,URINE NEGATIVE (NEGATIVE); PROTEIN,URINE NEGATIVE (NEGATIVE); URINE SPECIFIC GRAVITY 1.001; UROBILINOGEN,URINE NEGATIVE mg/dL (<2.0)
[2019-05-09 06:10] LABS: URINE AMPHETAMINES SCREEN NEGATIVE; URINE BARBITURATES SCREEN NEGATIVE; URINE BENZODIAZEPINES SCREEN NEGATIVE; URINE COCAINE SCREEN NEGATIVE; URINE MARIJUANA (THC) SCREEN NEGATIVE; URINE METHADONE SCREEN NEGATIVE; URINE PHENCYCLIDINE SCREEN NEGATIVE
--- NOTE | 2019-05-09 07:31 | RADIOLOGY REPORT (SQ) ---
EXAM DESCRIPTION: US LIMITED COMPLETED DATE/TME: 05/09/2019 00:00 CLINICAL HISTORY: 19 years Female, contractions COMPARISON: 03/27/2019 TECHNIQUE: Limited greater than 14 week obstetrical ultrasound for desired parameters. LMP 10/16/2018 FINDINGS: Cervical length: 3.4 cm. Closed. position: Vertex XAVIER: 12.7 heart rate: 153 Placenta: Anterior IMPRESSION: 1. Single live intrauterine with heart rate of 153 bpm.
[2019-05-09 08:02] LABS: ABSOLUTE LYMPHOCYTES (AUTO) 1.2 10^3/uL (0.5-4.7); ABSOLUTE MONOCYTES (AUTO) 0.5 10^3/uL (0.1-1.4); BASOPHILS % (AUTO) 0.4 % (0-2); EOSINOPHILS % (AUTO) 0.3 % (0-6); HEMATOCRIT 28.9 % (36.0-47.0); HEMOGLOBIN 9.8 g/dL (12.0-15.5); LYMPHOCYTES % (AUTO) 11.5 % (13-45); MEAN CORPUSCULAR HEMOGLOBIN 28.5 pg (27.0-33.4); MEAN CORPUSCULAR VOLUME 84 fl (80-97); MONOCYTES % (AUTO) 4.3 % (3-13); PLATELET COUNT 289 10^3/uL (150-450); RED BLOOD COUNT 3.45 10^6/uL (3.72-5.28); RED CELL DISTRIBUTION WIDTH 13.4 % (11.5-14.0); SEGMENTED NEUTROPHILS % (AUTO) 83.5 % (42-78); TOTAL CELLS COUNTED % (AUTO) 100 %; WHITE BLOOD COUNT 10.8 10^3/uL (4.0-10.5)
[2019-05-09 08:08] LABS: ALKALINE PHOSPHATASE 175 U/L (38-126); AMYLASE 195 U/L (30-110); ANION GAP 8 (5-19); ASPARTATE AMINO TRANSFERASE 57 U/L (14-36); BILIRUBIN,DIRECT 0.5 mg/dL (0.0-0.4); BILIRUBIN,TOTAL 0.5 mg/dL (0.2-1.3); BLOOD UREA NITROGEN 4 mg/dL (7-20); CALCIUM 9.4 mg/dL (8.4-10.2); CARBON DIOXIDE 22 mmol/L (22-30); CHLORIDE 109 mmol/L (98-107); GLUCOSE 87 mg/dL (75-110); POTASSIUM 3.7 mmol/L (3.6-5.0); TOTAL PROTEIN 5.9 g/dL (6.3-8.2)
--- NOTE | 2019-05-09 12:13 | RADIOLOGY REPORT (SQ) ---
EXAM DESCRIPTION: U/S ABDOMEN LIMITED W/O DOP COMPLETED DATE/TIME: 05/09/2019 7:58 am REASON FOR STUDY: Elevated amylase and lipase. Return labor. 29 weeks 2 days gestation. COMPARISON: None. TECHNIQUE: Limited transabdominal grayscale ultrasound for evaluation of specific requested obstetri vanita parameters. LIMITATIONS: None. FINDINGS: CERVICAL LENGTH: 3.4 cm Closed. XAVIER: 12.7 Cm. FHR: 153 beats per minute. PRESENTATION: Cephalic. PLACENTA: Anterior ANATOMY: Not assessed OTHER: No other significant findings. IMPRESSION: Single live intrauterine . Trimester of : Third trimester - 28 weeks to delivery. TECHNICAL DOCUMENTATION: JOB ID: [id number] 2010 [employer]- All Rights Reserved Reading location - IP/workstation name: [email or web address]
== END 2019-05-09 14:30 | disposition home or self-care (01) ==
LOC: LC 05:25
PROVIDERS: ATTEND Obstetrics & Gynecology
PROC: 4A1HXCZ Monitoring of Products of Conception, Cardiac Rate, External Approach (ICD-10-PCS; principal; 2019-05-09)
DX: O47.03 False labor before 37 completed weeks of gestation, third trimester (principal); Z3A.29 29 weeks gestation of pregnancy
CPT/HCPCS: 59899; 36415; 82150; 83690; 85025; 80053; 81001; 80307; 76705; 76815; J2550

== ENCOUNTER 2019-06-06 13:57 | Outpatient (CLI) | payer MEDICAID ==
[2019-06-06 14:27] LABS: APPEARANCE,URINE CLEAR; BILIRUBIN,URINE NEGATIVE (NEGATIVE); COLOR,URINE YELLOW; GLUCOSE, URINE NEGATIVE (NEGATIVE); KETONES,URINE NEGATIVE (NEGATIVE); LEUKOCYTE ESTERASE,URINE NEGATIVE (NEGATIVE); NITRITE,URINE NEGATIVE (NEGATIVE); PROTEIN,URINE NEGATIVE (NEGATIVE); URINE SPECIFIC GRAVITY 1.008; UROBILINOGEN,URINE NEGATIVE mg/dL (<2.0)
[2019-06-06 14:40] LABS: BACTERIA (WET MOUNT) 3+ BACTERIA SEEN; EPITHELIALS (WET MOUNT) 3+ EPITHELIALS SEEN; RBCS (WET MOUNT) 4+ RBCS SEEN; T.VAGINALIS (WET MOUNT) NO TRICHOMONAS SEEN; WBCS (WET MOUNT) 1+ WBCS SEEN; YEAST (WET MOUNT) NO YEAST SEEN
[2019-06-06 14:57] LABS: URINE AMPHETAMINES SCREEN NEGATIVE; URINE BARBITURATES SCREEN NEGATIVE; URINE BENZODIAZEPINES SCREEN NEGATIVE; URINE COCAINE SCREEN NEGATIVE; URINE MARIJUANA (THC) SCREEN NEGATIVE; URINE METHADONE SCREEN NEGATIVE; URINE PHENCYCLIDINE SCREEN NEGATIVE
--- NOTE | 2019-06-06 15:29 | RADIOLOGY REPORT (SQ) ---
EXAM DESCRIPTION: U/S OB LIMITED IMAGES COMPLETED DATE/TIME: 06/06/2019 3:09 pm REASON FOR STUDY: cervical length COMPARISON: 05/09/2019 limited Ob ultrasound TECHNIQUE: Limited transabdominal and endovaginal grayscale ultrasound for evaluation of specific re quested obstetrical parameters. LIMITATIONS: None. FINDINGS: CERVICAL LENGTH: Measured endovaginally, 2 cm in length Closed. XAVIER: Total 8.6 cm, LVP 4.9 x 3.7 cm FHR: 137 beats per minute. PRESENTATION: Cephalic. PLACENTA: Anterior grade 2 ANATOMY: Not assessed OTHER: No other significant findings. IMPRESSION: Cervix closed, 2 cm in length Trimester of : Third trimester - 28 weeks to delivery. TECHNICAL DOCUMENTATION: JOB ID: [id number] 2010 [employer]- All Rights Reserved Reading location - IP/workstation name: [email or web address]
--- NOTE | 2019-06-06 15:48 | Non Stress Test Report ---
Non Stress Test Datetime Report Generated by CPN: 06/06/2019 15:48 DEMOGRAPHIC Test Number: 1 EGA NST: 33.2 INDICATION Indication for Study (NST) Other: Vaginal bleeding MONITORING Monitor Explained: Monitor Explained; Test Explained; Patient Verbalized Understanding Time on Monitor: 06/06/2019 15:03 Time off Monitor: 06/06/2019 15:30 NST Duration: 27 NST INTERVENTIONS NST Interventions: PO Hydration Physician Notified NST: Dr. Jono BABY A: [id number] BABY A Movement : Present Contraction Frequency : Irregular FHR Baseline : 140 Accelerations : 15X15 Decelerations : None Variability : Moderate 6-25bpm NST Review: Meets Criteria for Reactive NST NST Review and Verified By : Kathy Amaral RN NST Results: Reactive NST REPORT Report Trigger: Send Report
[2019-06-06 16:10] LABS: CHLAM PCR NOT DETECTED (NOT DETECT)
== END 2019-06-06 15:38 | disposition home or self-care (01) ==
LOC: LC 13:57
PROVIDERS: ATTEND Obstetrics & Gynecology
DX: O46.93 Antepartum hemorrhage, unspecified, third trimester (principal); O47.03 False labor before 37 completed weeks of gestation, third trimester; Z3A.33 33 weeks gestation of pregnancy
CPT/HCPCS: 59025; 76815; 80307; 81001; 87210; 87491; 87591; 94760

== ENCOUNTER 2019-06-08 20:12 | Inpatient (IN) | payer MEDICAID ==
[2019-06-08] MEDS ORDERED: RINGERS SOLUTION,LACTATED 1,000 ML IV ONE (20:50)
[2019-06-08] MEDS ORDERED: BETAMET ACET/BETAMET NA INJ 6 MG/1 ML IM ONE (20:50)
[2019-06-08 20:55] LABS: APPEARANCE,URINE CLEAR; BILIRUBIN,URINE NEGATIVE (NEGATIVE); COLOR,URINE STRAW; GLUCOSE, URINE NEGATIVE (NEGATIVE); KETONES,URINE NEGATIVE (NEGATIVE); LEUKOCYTE ESTERASE,URINE TRACE (NEGATIVE); NITRITE,URINE NEGATIVE (NEGATIVE); PROTEIN,URINE NEGATIVE (NEGATIVE); URINE SPECIFIC GRAVITY 1.004; UROBILINOGEN,URINE NEGATIVE mg/dL (<2.0)
[2019-06-08] MEDS ORDERED: BETAMET ACET/BETAMET NA INJ 6 MG/1 ML ONE ×2 (20:58→20:59)
[2019-06-08 21:07] LABS: URINE AMPHETAMINES SCREEN NEGATIVE; URINE BARBITURATES SCREEN NEGATIVE; URINE BENZODIAZEPINES SCREEN NEGATIVE; URINE COCAINE SCREEN NEGATIVE; URINE MARIJUANA (THC) SCREEN NEGATIVE; URINE METHADONE SCREEN NEGATIVE; URINE PHENCYCLIDINE SCREEN NEGATIVE
[2019-06-08] MEDS ORDERED: ERYTHROMYCIN INJ 500 MG VIAL IV SCH (21:15)
[2019-06-08] MEDS: AMPICILLIN SODIUM 2 GM in NORMAL SALINE 100 ML IV SCH (21:30)
[2019-06-08 21:50] LABS: ABSOLUTE EOSINOPHILS # (AUTO) 0.1 10^3/uL (0.0-0.6); ABSOLUTE LYMPHOCYTES (AUTO) 2.4 10^3/uL (0.5-4.7); ABSOLUTE MONOCYTES (AUTO) 0.7 10^3/uL (0.1-1.4); ABSOLUTE NEUT (AUTO) 14.7 10^3/uL (1.7-8.2); BASOPHILS % (AUTO) 0.2 % (0-2); EOSINOPHILS % (AUTO) 0.5 % (0-6); HEMATOCRIT 29.4 % (36.0-47.0); LYMPHOCYTES % (AUTO) 13.3 % (13-45); MEAN CORPUSCULAR HEMOGLOBIN 28.4 pg (27.0-33.4); MEAN CORPUSCULAR HGB CONC 34.1 g/dL (32.0-36.0); MEAN CORPUSCULAR VOLUME 83 fl (80-97); MONOCYTES % (AUTO) 4.2 % (3-13); PLATELET COUNT 365 10^3/uL (150-450); RED BLOOD COUNT 3.54 10^6/uL (3.72-5.28); RED CELL DISTRIBUTION WIDTH 13.1 % (11.5-14.0); SEGMENTED NEUTROPHILS % (AUTO) 81.8 % (42-78); TOTAL CELLS COUNTED % (AUTO) 100 %
[2019-06-08] MEDS ORDERED: ERYTHROMYCIN LACTOBIONATE 250 MG in NORMAL SALINE 100 ML IV SCH (22:00)
--- NOTE | 2019-06-08 22:04 | RADIOLOGY REPORT (SQ) ---
CLINICAL INDICATION: PPROM, 33+4ega, position, efw. . TECHNIQUE: Real time multiplanar ultrasonographic delaney scale imaging was obtained of the pelvis. Transabdominal. 38 static images obtained. Additional cine loop COMPARISON: None. CORRELATION: None. FINDINGS: A viable single intrauterine gestation is identified in a vertex presentation. The heart beat is regular at 120 beats per minute. The placenta is in a anterior location. No evidence of previa or abruption. Biometrics: Biparietal diameter is 8.6 cm., # weeks 4 days Head circumference is 29.6 cm., 32 weeks 5 days Abdominal circumference is 29.8 cm., 33 weeks 5 days Femoral length is 6.7 cm., 34 weeks 4 days Composite gestational age is 33 weeks 6 days +/- # weeks # days, MARIELY of July 21, 2019. Clinical age is 33 weeks or days, MARIELY of July 23, 2019. Estimated weight is 2308 grams, +/- 342 grams. [address] the fetus within the 49th percentile Amniotic fluid index is 7.5 cm. Maternal pelvis is not evaluated. Cervix is closed IMPRESSION: Viable single intrauterine gestation in a vertex presentation, as described. Amniotic fluid index is low normal at 7.5 cm.
[2019-06-08] MEDS ORDERED: ONDANSETRON HCL INJ/PF 4 MG/2 ML SDV ONE (22:25)
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
[2019-06-08 23:44] LABS: CHLAM PCR NOT DETECTED (NOT DETECT)
[2019-06-08] MEDS ORDERED: ONDANSETRON HCL INJ/PF 4 MG/2 ML SDV IV ONE (23:59)
[2019-06-09] MEDS: AMPICILLIN SODIUM 2 GM in NORMAL SALINE 100 ML IV SCH ×4 (03:07→20:52)
[2019-06-09] MEDS ORDERED: HYDROXYZINE PAMOATE 50 MG CAPSULE ONE ×2 (03:14→21:19)
[2019-06-09] MEDS: ERYTHROMYCIN LACTOBIONATE 250 MG in NORMAL SALINE 100 ML IV SCH ×4 (03:32→21:48)
[2019-06-09] MEDS ORDERED: HYDROMORPHONE HCL INJ/PF 2 MG/ML AMPULE ONE (04:37)
[2019-06-09] MEDS ORDERED: ONDANSETRON HCL INJ/PF 4 MG/2 ML SDV IV ONE (05:00)
[2019-06-09] MEDS ORDERED: HYDROMORPHONE HCL INJ/PF 2 MG/ML AMPULE IV ONE (05:00)
[2019-06-09] MEDS ORDERED: AMPICILLIN SOD INJ 2 GM VIAL ONE (08:58)
[2019-06-09] MEDS ORDERED: ERYTHROMYCIN INJ 500 MG VIAL IV ONE (08:58)
[2019-06-09] MEDS ORDERED: MAGNESIUM SULFATE 20 GM/500 ML RTUINJ IV ONE (09:27)
[2019-06-09] MEDS ORDERED: MAGNESIUM SULFATE 4 GM/100 ML RTUPB IV ONE ×2 (09:27→09:38)
[2019-06-09] MEDS ORDERED: MAGNESIUM SULFATE 20 GM/500 ML RTUINJ IV PRN (09:38)
[2019-06-09] MEDS: RINGERS SOLUTION,LACTATED 1,000 ML IV PRN (09:54)
[2019-06-09] MEDS ORDERED: BETAMET ACET/BETAMET NA INJ 6 MG/1 ML ONE (20:31)
--- NOTE | 2019-06-09 21:36 | Non Stress Test Report ---
Non Stress Test Datetime Report Generated by CPN: 06/09/2019 21:36 DEMOGRAPHIC EGA NST: 33.5 INDICATION Indication for Study (NST) Other: ordered qSHIFT MONITORING Monitor Explained: Monitor Explained; Test Explained; Patient Verbalized Understanding Time on Monitor: 06/09/2019 20:51 Time off Monitor: 06/09/2019 21:31 NST Duration: 40 NST INTERVENTIONS NST Interventions: PO Hydration; IV Fluids Physician Notified NST: Dr. Early BABY A: [id number] BABY A Movement : Present Contraction Frequency : none FHR Baseline : 125 Accelerations : 15X15 Decelerations : None Variability : Moderate 6-25bpm NST Review: Meets Criteria for Reactive NST NST Review and Verified By : Keena Jackson RN NST Results: Reactive NST REPORT Report Trigger: Send Report
[2019-06-10] MEDS: AMPICILLIN SODIUM 2 GM in NORMAL SALINE 100 ML IV SCH ×4 (02:00→21:25)
[2019-06-10] MEDS: ERYTHROMYCIN LACTOBIONATE 250 MG in NORMAL SALINE 100 ML IV SCH ×4 (02:30→22:07)
--- NOTE | 2019-06-10 06:59 | PDOC PROGRESS REPORT ---
Subjective Progress Note for:: 06/09/19 Subjective:: Doing well. No issues. Denies abdominal pain, fever, chills, regular ctx or cramping. SHe is day two of IV antibiotics after PPROM> Reports good FM Reason For Visit: Physical Exam - Physical Exam Vital Signs: Intake & Output 06/08/19 06/09/19 06/10/19 06:59 06:59 06:59 Intake Total 200 300 Balance 200 300 Weight 83.2 kg General appearance: PRESENT: no acute distress Respiratory exam: PRESENT: clear to auscultation jose eduardo Cardiovascular exam: PRESENT: RRR, +S1, +S2 GI/Abdominal exam: PRESENT: normal bowel sounds Psychiatric exam: PRESENT: appropriate affect, normal mood Skin exam: PRESENT: dry, normal color, warm Result Laboratory Results: 06/08/19 21:37 Impressions: Obstetrics Ultrasound 06/08/19 20:52 IMPRESSION: Viable single intrauterine gestation in a vertex presentation, as described. Amniotic fluid index is low normal at 7.5 cm. Assessment & Plan - Diagnosis (1) premature rupture of membranes Is this a current diagnosis for this admission?: Yes - Time Time Spent with patient: 15-24 minutes - VSS, afebrile Exam negative D/c plan for IOL at 34 wks on Friday as long as she remains asymptomatic and not laboring If laboring will begin Magnesium sulfate for neuroprotection Continue NST Q shift CBC in am
[2019-06-10 07:36] LABS: ABSOLUTE LYMPHOCYTES (AUTO) 1.1 10^3/uL (0.5-4.7); ABSOLUTE MONOCYTES (AUTO) 0.2 10^3/uL (0.1-1.4); ABSOLUTE NEUT (AUTO) 16.1 10^3/uL (1.7-8.2); HEMATOCRIT 26.5 % (36.0-47.0); HEMOGLOBIN 9.1 g/dL (12.0-15.5); LYMPHOCYTES % (AUTO) 6.3 % (13-45); MEAN CORPUSCULAR HEMOGLOBIN 28.7 pg (27.0-33.4); MEAN CORPUSCULAR HGB CONC 34.5 g/dL (32.0-36.0); MEAN CORPUSCULAR VOLUME 83 fl (80-97); PLATELET COUNT 334 10^3/uL (150-450); RED BLOOD COUNT 3.18 10^6/uL (3.72-5.28); RED CELL DISTRIBUTION WIDTH 13.1 % (11.5-14.0); SEGMENTED NEUTROPHILS % (AUTO) 92.7 % (42-78); TOTAL CELLS COUNTED % (AUTO) 100 %; WHITE BLOOD COUNT 17.4 10^3/uL (4.0-10.5)
[2019-06-10] MEDS: RINGERS SOLUTION,LACTATED 1,000 ML IV PRN (10:57)
[2019-06-11] MEDS: RINGERS SOLUTION,LACTATED 1,000 ML IV PRN ×2 (00:25→08:52)
[2019-06-11] MEDS: AMPICILLIN SODIUM 2 GM in NORMAL SALINE 100 ML IV SCH ×2 (02:11→09:30)
[2019-06-11] MEDS: ERYTHROMYCIN LACTOBIONATE 250 MG in NORMAL SALINE 100 ML IV SCH ×2 (03:41→10:35)
[2019-06-11] MEDS ORDERED: OXYTOCIN 10 UNIT/ML VIAL ONE (08:33)
[2019-06-11] MEDS ORDERED: MISOPROSTOL 0.2 MG TABLET ONE (08:34)
[2019-06-11] MEDS ORDERED: LIDOCAINE 1% INJ-PF (10 MG/ML) 30 ML SDV ONE (08:34)
[2019-06-11] MEDS ORDERED: OXYTOCIN/NORMAL SALINE 20 UNIT/1,000 ML RTUINJ ONE (08:35)
[2019-06-11] MEDS ORDERED: OXYTOCIN/NORMAL SALINE 20 UNIT/1,000 ML RTUINJ IV PRN ×2 (08:57→13:49)
[2019-06-11] MEDS ORDERED: EPHEDRINE SULFATE INJ 50 MG/1 ML AMPULE ONE (11:48)
[2019-06-11] MEDS ORDERED: FENTANYL/BUPIVACAINE/NS/PF 300 MCG/150 ML RTUINJ EPI ONE (11:48)
[2019-06-11] MEDS ORDERED: PHENYLEPHRINE HCL INJ/PF 10 MG/1 ML SDV ONE (11:48)
[2019-06-11] MEDS ORDERED: FENTANYL CITRATE INJ/PF 100 MCG/2 ML AMPUL ONE (11:48)
[2019-06-11] MEDS ORDERED: BUPIVACAINE HCL 0.25 % INJ/PF (2.5 MG/1 ML) 30 ML VIAL ONE (11:49)
[2019-06-11] MEDS ORDERED: NA PHOS,M-B/NA PHOS,DI-BA (ADULT) 133 ML ENEMA PR PRN (13:49)
[2019-06-11] MEDS ORDERED: PROMETHAZINE HCL INJ 25 MG/1 ML VIAL IV PRN (13:49)
[2019-06-11] MEDS ORDERED: PROMETHAZINE HCL 25 MG SUPP.RECT PR PRN (13:49)
[2019-06-11] MEDS ORDERED: MISOPROSTOL 0.2 MG TABLET PR PRN (13:49)
[2019-06-11] MEDS ORDERED: ACETAMINOPHEN WITH CODEINE #3 TABLET PO PRN ×2 (13:49)
[2019-06-11] MEDS ORDERED: PROMETHAZINE HCL 25 MG TABLET PO PRN (13:49)
[2019-06-11] MEDS ORDERED: MAGNESIUM HYDROXIDE SUSP 30 ML UDCUP PO PRN (13:49)
[2019-06-11] MEDS ORDERED: PSEUDOEPHEDRINE HCL 30 MG TABLET PO PRN (13:49)
[2019-06-11] MEDS ORDERED: ACETAMINOPHEN 325 MG TABLET PO PRN (13:49)
[2019-06-11] MEDS ORDERED: DIPHENHYDRAMINE HCL 25 MG CAPSULE PO PRN (13:49)
[2019-06-11] MEDS ORDERED: ZOLPIDEM TARTRATE 5 MG TABLET PO PRN (13:49)
[2019-06-11] MEDS ORDERED: DIPH/PERTUSS(ACELL)/TETANUS VAC/PF 0.5 ML SYR (>=10YO) IM PRN (13:49)
[2019-06-11] MEDS ORDERED: MEASLES,MUMPS&RUBELLA VACC/PF 0.5 ML VIAL SUBCUT PRN (13:49)
[2019-06-11] MEDS ORDERED: GLYCERIN/WITCH HAZEL LEAF 1 EACH MED..WIPE TP PRN (13:49)
[2019-06-11] MEDS ORDERED: DIBUCAINE 1% OINTMENT 28 GM TP PRN (13:49)
[2019-06-11] MEDS ORDERED: BENZOCAINE/MENTHOL AEROSOL SPRAY 56 ML TOP PRN (13:49)
[2019-06-11] MEDS ORDERED: IBUPROFEN 800 MG TABLET ONE (15:03)
--- NOTE | 2019-06-11 15:06 | Delivery Summary ---
Del Sum A-C Datetime Report Generated by CPN: 06/11/2019 15:06 DELIVERY PERSONNEL DELIVERY PERSONNEL: [id number] Delivery Doctor:: Rosalinda Watson MD Labor and Delivery Nurse:: April Mendes RNelectrical test engineer Nurse:: Devi Guy RN Nursery Nurse:: Shaila Menchaca RN Nursery Nurse:: Mary Guzman RN Hvac Field Service Technician/MANGLE ROLL OPERATOR: Claire Malone, GLASS CARRIER Hvac Field Service Technician/MANGLE ROLL OPERATOR: Petra Frederick CNA II MATERNAL INFORMATION Delivery Anesthesia: Epidural Medications After Delivery: Pitocin Bolus-Please Comment; Pitocin Drip 20 Units/1000ml NSS; Cytotec 1000mcg Per Rectum/Vagina Meds After Delivery Comment: 20 Units Pitocin/1000ml NS Estimated Blood Loss (ml): 75 Delivery QBL: 75 Maternal Complications: Premature Rupture of Membranes Provider Comments: VFI delivered in FRIEDA presentation with tight nuchal cord delivered through. Shoulders and body delivered without difficulty. Cord doubly clamped and cut after 2 minites. no perineal lacerations. FF at U with intermittent atony with improvement with cytotec placement HI. Good hemostasis. No perineal lacerations. Mother and baby stable upon provider leaving the room. NICU team present for delivery due to age. LABOR SUMMARY EDC: 07/23/2019 00:00 No. Babies in Womb: 1 Attempted: No Labor Anesthesia: Epidural LABOR INFORMATION Reason for Induction: Premature Rupture of Membranes Reason for Induction- Other: PPROM at 34wks Onset of Labor: 06/11/2019 08:50 Complete Dilatation: 06/11/2019 13:28 Oxytocin: Induction Group B Beta Strep: 1 NO GROUP B STREPTOCOCCUS RECOVERED Antibiotics # of Doses: 19 Antibiotics Time of Last Dose: 929 Name of Antibiotic Given: ERYTHROMYCIN; AMPICILLIN Steroids Given: Full Course Reason Steroids Not Administered: Not Applicable MEMBRANES Membranes Rupture Method: Spontaneous Rupture of Membranes: 06/08/2019 19:30 Length of Rupture (hr): 66.03 Amniotic Fluid Color: Clear Amniotic Fluid Amount: Copious Amniotic Fluid Odor: None STAGES OF LABOR Stage 1 hr: 4 Stage 1 min: 38 Stage 2 hr: 0 Stage 2 min: 4 Stage 3 hr: 0 Stage 3 min: 4 Total Time in Labor hr: 4 Total Time in Labor min: 46 VAGINAL DELIVERY Episiotomy: None Laceration #1: None Laceration Extension #1: N/A Laceration Repair: Not Applicable Sponge Count Correct: Yes Sharps Count Correct: Yes BABY A INFORMATION Delivery Date/Time: 06/11/2019 13:32 Method of Delivery: Vaginal Born in Route : No : N/A Forceps: N/A Vacuum Extraction: N/A Shoulder Dystocia : No PRESENTATION/POSITION BABY A Presentation: Cephalic Cephalic Presentation: Vertex Vertex Position: Left Occipital Anterior Breech Presentation: N/A PLACENTA INFORMATION BABY A Placenta Delivery Time : 06/11/2019 13:36 Placenta Method of Delivery: Spontaneous Placenta Status: Delivered SCORES BABY A Heart Rate 1 min: >100 bpm Resp Effort 1 min: Good Cry Reflex Irritability 1 min: Cough or Sneeze or Pulls Away Muscle Tone 1 min: Active Motion Color 1 min: Body [place], Extremities Blue Resuscitation Effort 1 min: Tactile Stimulation SCORE 1 MIN: 9 Heart Rate 5 min: >100 bpm Resp Effort 5 min: Good Cry Reflex Irritability 5 min: Cough or Sneeze or Pulls Away Muscle Tone 5 min: Active Motion Color 5 min: Body [place], Extremities Blue Resuscitation Effort 5 min: Tactile Stimulation SCORE 5 MIN: 9 INFANT INFORMATION BABY A Gestational Age at Delivery: 34.0 Gestational Status: Late - 34- 36.6 Weeks Outcome : Liveborn Infant Condition : Stable Infant Sex: Female IDENTIFICATION BABY A Infant Verification Date/Time: 06/11/2019 13:46 ID Band Number: [id number] RN Verifying : Dari Mendes RN Additional Verifying Personnel: Gee Guzman RN WEIGHT/LENGTH BABY A Birthweight (gm): 2612 Weight (lb): 5 Weight (oz): 12 Infant Length (in): 18.25 Infant Length (cm): 46.36 CORD INFORMATION BABY A No. Cord Vessels: 3 Nuchal Cord : Around Neck x1, Loose Cord Blood Taken: Yes-For Eval (Mom's Blood Type - or O+) Infant Suction: None ASSESSMENT BABY A Infant Complications: None Physical Findings at Delivery: Within Normal Limits Respirations: Appears Normal Skin to Skin: Yes Skin to Skin Time (min): 10 Municipal Bond Trader/ALS Called : No Infant Care By: Marywilliams Guzman RN Transferred To: NICU BABY B INFORMATION : N/A SIGNATURES Signature: with User ID: [email or web address]
[2019-06-11] MEDS: IBUPROFEN 800 MG TABLET PO SCH ×2 (15:24→22:42)
[2019-06-11] MEDS: DOCUSATE SODIUM 100 MG CAPSULE PO SCH (17:37)
[2019-06-11] MEDS: FERROUS SULFATE 325 MG TABLET PO SCH (17:37)
[2019-06-11] MEDS: FAMOTIDINE 20 MG TABLET PO SCH (22:41)
[2019-06-12] MEDS: IBUPROFEN 800 MG TABLET PO SCH ×3 (05:51→21:22)
[2019-06-12 06:45] LABS: HEMATOCRIT 29.7 % (36.0-47.0); HEMOGLOBIN 10.1 g/dL (12.0-15.5); MEAN CORPUSCULAR HEMOGLOBIN 28.5 pg (27.0-33.4); MEAN CORPUSCULAR HGB CONC 33.9 g/dL (32.0-36.0); MEAN CORPUSCULAR VOLUME 84 fl (80-97); PLATELET COUNT 371 10^3/uL (150-450); RED BLOOD COUNT 3.54 10^6/uL (3.72-5.28); RED CELL DISTRIBUTION WIDTH 13.2 % (11.5-14.0); WHITE BLOOD COUNT 15.6 10^3/uL (4.0-10.5)
[2019-06-12] MEDS: PRENATAL VITAMIN W DHA CAPSULE PO SCH (09:20)
[2019-06-12] MEDS: SENNOSIDES/DOCUSATE 8.6-50 MG 1 EACH TABLET PO SCH (09:20)
[2019-06-12] MEDS: FERROUS SULFATE 325 MG TABLET PO SCH ×2 (09:20→18:15)
[2019-06-12] MEDS: DOCUSATE SODIUM 100 MG CAPSULE PO SCH ×2 (09:21→18:15)
[2019-06-12] MEDS: FAMOTIDINE 20 MG TABLET PO SCH ×2 (09:21→21:23)
--- NOTE | 2019-06-12 10:15 | PDOC PROGRESS REPORT ---
Subjective-OB Progress Note for:: 06/12/19 - PP Day #1, doing well, UOB voiding, , O+, rubella Immune Physical Exam (OB) Vital Signs: Temp Pulse Resp BP Pulse Ox 97.4 F 81 16 115/68 99 06/12/19 08:00 06/12/19 08:00 06/12/19 08:00 06/12/19 08:00 06/12/19 08:00 Intake & Output 06/11/19 06/12/19 06/13/19 06:59 06:59 06:59 Intake Total 1400 1000 Balance 1400 1000 Weight 78.6 kg - General General Appearance: Appears well, Alert - Lochia Lochia Amount: Scant < 10 ml Lochia Color: Rubra/Red - Abdomen Description: Soft Hernia Present: No Fundal Description: Firm, Midline Fundal Height: u/u - u/2 - Respiratory Respiratory Status: No respiratory distress - Abdominal Distension: No distension Tenderness: Nontender - Genitourinary Genitourinary Note: voiding - Extremities Upper extremity: Normal inspection Lower extremities: Normal inspection - Skin Skin Temperature: Warm Skin Moisture: Dry Objective-Diagnostic Laboratory: 06/12/19 06:08 06/12/19 06:08 WBC 15.6 H RBC 3.54 L Hgb 10.1 L Hct 29.7 L MCV 84 MCH 28.5 MCHC 33.9 RDW 13.2 Plt Count 371 06/08/19 21:05 Vaginal/Anorectal Group B Streptococcus Culture - Final NO GROUP B STREPTOCOCCUS RECOVERED Assessment and Plan(PN) - Assessment and Plan (1) labor in third trimester Qualifiers: labor delivery status: with delivery in third trimester Is this a current diagnosis for this admission?: Yes (2) premature rupture of membranes Qualifiers: PROM onset of labor timing: onset of labor within 24 hours of rupture Qualified Code(s): O42.019 - premature rupture of membranes, onset of labor within 24 hours of rupture, unspecified trimester Is this a current diagnosis for this admission?: Yes (3) Vaginal delivery Is this a current diagnosis for this admission?: Yes (4) History of constipation Is this a current diagnosis for this admission?: Yes Plan:: Routine PP orders, ambulation encouraged - Time Spent with Patient Time with patient: Less than 15 minutes Medications reviewed and adjusted accordingly: Yes - Disposition Anticipated Discharge: Home Within: within 24 hours
[2019-06-13] MEDS: IBUPROFEN 800 MG TABLET PO SCH (05:55)
[2019-06-13] MEDS: DOCUSATE SODIUM 100 MG CAPSULE PO SCH (09:18)
[2019-06-13] MEDS: SENNOSIDES/DOCUSATE 8.6-50 MG 1 EACH TABLET PO SCH (09:19)
[2019-06-13] MEDS: PRENATAL VITAMIN W DHA CAPSULE PO SCH (09:19)
[2019-06-13] MEDS: FAMOTIDINE 20 MG TABLET PO SCH (09:19)
[2019-06-13] MEDS: FERROUS SULFATE 325 MG TABLET PO SCH (09:19)
--- NOTE | 2019-06-13 09:45 | PDOC DISCHARGE SUMMARY ---
Impression - Admit/DC Date/PCP Admission Date/Primary Care Provider: 06/08/19 20:56 TEQUILA XIE NP Discharge Date: 06/13/19 - PP Day #2, doing well, 34 wk baby remains in the NICU, pt to nest here and pump. O+. Rubella immune - Discharge Diagnosis (1) labor in third trimester Is this a current diagnosis for this admission?: Yes (2) premature rupture of membranes Is this a current diagnosis for this admission?: Yes (3) Vaginal delivery Is this a current diagnosis for this admission?: Yes (4) History of constipation Is this a current diagnosis for this admission?: Yes (5) 34 weeks gestation of Is this a current diagnosis for this admission?: Yes - Additional Information Resuscitation Status: Full Code Discharge Diet: As Tolerated, Regular Discharge Activity: Activity As Tolerated, No Lifting Over 10 Pounds, Pelvic Rest Referrals: [facility] [Provider Group] (Follow up in 4 weeks, Please call and set up the appointment.) Prescriptions: Ibuprofen [Motrin 800 mg Tablet] 800 mg PO Q8 #60 tablet Home Medications: No122/Iron/Folic Acid [ Multi Tablet] 1 tab PO DAILY 06/06/19 Ibuprofen [Motrin 800 mg Tablet] 800 mg PO Q8 #60 tablet 06/13/19 HPI Reason(s) for Admission: PROM, Labor Procedures: Ultrasound Intrapartum Procedure(s): Spontaneous Vaginal Delivery Results Laboratory Results: WBC 15.6 10^3/uL (4.0-10.5) H 06/12/19 06:08 RBC 3.54 10^6/uL (3.72-5.28) L 06/12/19 06:08 Hgb 10.1 g/dL (12.0-15.5) L 06/12/19 06:08 Hct 29.7 % (36.0-47.0) L 06/12/19 06:08 MCV 84 fl (80-97) 06/12/19 06:08 MCH 28.5 pg (27.0-33.4) 06/12/19 06:08 MCHC 33.9 g/dL (32.0-36.0) 06/12/19 06:08 RDW 13.2 % (11.5-14.0) 06/12/19 06:08 Plt Count 371 10^3/uL (150-450) 06/12/19 06:08 Lymph % (Auto) 6.3 % (13-45) L 06/10/19 07:13 [place] % (Auto) 1.0 % (3-13) L 06/10/19 07:13 Eos % (Auto) 0.0 % (0-6) 06/10/19 07:13 Baso % (Auto) 0.0 % (0-2) 06/10/19 07:13 Absolute Neuts (auto) 16.1 10^3/uL (1.7-8.2) H 06/10/19 07:13 Absolute Lymphs (auto) 1.1 10^3/uL (0.5-4.7) 06/10/19 07:13 Absolute Monos (auto) 0.2 10^3/uL (0.1-1.4) 06/10/19 07:13 Absolute Eos (auto) 0.0 10^3/uL (0.0-0.6) 06/10/19 07:13 Absolute Basos (auto) 0.0 10^3/uL (0.0-0.2) 06/10/19 07:13 Seg Neutrophils % 92.7 % (42-78) H 06/10/19 07:13 Urine Color STRAW 06/08/19 20:15 Urine Appearance CLEAR 06/08/19 20:15 Urine pH 7.0 (5.0-9.0) 06/08/19 20:15 Ur Specific [place] 1.004 06/08/19 20:15 Urine Protein NEGATIVE mg/dL (NEGATIVE) 06/08/19 20:15 Urine Glucose (UA) NEGATIVE mg/dL (NEGATIVE) 06/08/19 20:15 Urine Ketones NEGATIVE mg/dL (NEGATIVE) 06/08/19 20:15 Urine Blood MODERATE (NEGATIVE) H 06/08/19 20:15 Urine Nitrite NEGATIVE (NEGATIVE) 06/08/19 20:15 Urine Bilirubin NEGATIVE (NEGATIVE) 06/08/19 20:15 Urine Urobilinogen NEGATIVE mg/dL (<2.0) 06/08/19 20:15 Ur Leukocyte Esterase TRACE (NEGATIVE) H 06/08/19 20:15 Urine WBC (Auto) 6 /HPF 06/08/19 20:15 Urine Ascorbic Acid NEGATIVE (NEGATIVE) 06/08/19 20:15 Membranes Rupture POSITIVE (NEGATIVE) H 06/08/19 20:30 Urine Opiates Screen NEGATIVE 06/08/19 20:15 Urine Methadone Screen NEGATIVE 06/08/19 20:15 Ur Barbiturates Screen NEGATIVE 06/08/19 20:15 Ur Phencyclidine Scrn NEGATIVE 06/08/19 20:15 Ur Amphetamines Screen NEGATIVE 06/08/19 20:15 U Benzodiazepines Scrn NEGATIVE 06/08/19 20:15 Urine Cocaine Screen NEGATIVE 06/08/19 20:15 U Marijuana (THC) Screen NEGATIVE 06/08/19 20:15 RPR NONREACTIVE (NONREACTIVE) 06/08/19 21:37 Chlamydia DNA (PCR) NOT DETECTED (NOT DETECT) 06/08/19 21:05 N.gonorrhoeae DNA (PCR) NOT DETECTED (NOT DETECT) 06/08/19 21:05 Blood Type O POSITIVE 06/08/19 21:37 Antibody Screen NEGATIVE 06/08/19 21:37 Impressions: Obstetrics Ultrasound 06/08/19 20:52 IMPRESSION: Viable single intrauterine gestation in a vertex presentation, as described. Amniotic fluid index is low normal at 7.5 cm. Plan Plan of Treatment: d/c home. Pt to f/up with [facility] in 4 wks for PP check Time Spent: Less than 30 Minutes
[2019-06-13 10:14] VITALS: BP 115/68
== END 2019-06-13 12:05 | disposition home or self-care (01) | DRG 807 ==
LOC: LC 20:12 → LR 20:56 → 2N 06-10 08:47 → LR 06-11 08:15 → 2N 06-11 16:00
PROVIDERS: ADMIT Student in an Organized Health Care Education/Training Program; ATTEND Student in an Organized Health Care Education/Training Program
PROC: 10E0XZZ Delivery of Products of Conception, External Approach (ICD-10-PCS; principal; 2019-06-11)
PROC: 3E0234Z Introduction of Serum, Toxoid and Vaccine into Muscle, Percutaneous Approach (ICD-10-PCS; 2019-06-13)
DX: O60.14X0 Preterm labor third trimester with preterm delivery third trimester, not applicable or unspecified (principal); Z37.0 Single live birth; O69.1XX0 Labor and delivery complicated by cord around neck, with compression, not applicable or unspecified; O99.824 Streptococcus B carrier state complicating childbirth; O42.913 Preterm premature rupture of membranes, unspecified as to length of time between rupture and onset of labor, third trimester; Z3A.34 34 weeks gestation of pregnancy; Z23 Encounter for immunization; O62.2 Other uterine inertia
CPT/HCPCS: 36415; 59025; 76815; 80307; 81001; 84112; 85025; 85027; 86592; 86850; 86900; 86901; 87081; 87491; 87591; 90715; J0290; J0702; J1170; J1364; J2370; J2405; J2590; J3010; J3475; J3490; J7050; J7120